=== PATIENT | female | born 1990 | race Caucasian/White ===

== ENCOUNTER 2019-08-12 16:29 | Emergency (ER) | payer OTHER ==
[2019-08-12 16:46] VITALS: BP 99/64; PULSE 79; TEMP 98.2; BMI 31.9
--- NOTE | 2019-08-12 17:00 | PDOC ---
History of Present Illness - General Chief Complaint: Pain, Acute Stated Complaint: LOWER ABD PAIN Time Seen by Provider: 08/12/19 16:47 - History of Present Illness Initial Comments: 08/12/19 17:00 CHIEF COMPLAINT: test HISTORY OF PRESENT ILLNESS: 29 yo F presents to [facility] requesting test. Patient requests discretion and refuses to answer more questions regarding request. No recent travel or sick contacts. PAST MEDICAL HISTORY: Denies past medical history FAMILY HISTORY: Denies SOCIAL HISTORY: Denies tobacco, alcohol, illicit drug use. SURGICAL HISTORY: Denies ALLERGIES: No known drug allergies REVIEW OF SYSTEMS - refused PHYSICAL EXAM General Appearance: Well-appearing, appropriately dressed. No apparent distress , no intoxication. HEENT: EOMI, PERRLA, normal ENT inspection, normal voice, TMs normal, pharynx normal. No conjunctival pallor. No photophobia, scleral icterus. Neck: Supple. Trachea midline. Respiratory/Chest: Lungs CTAB. Cardiovascular: RRR. S1, S2. Gastrointestinal/Abdominal: Normal bowel sounds. Abdomen soft, non-distended. Musculoskeletal/Extremities: Normal inspection. FROM of all extremities, normal capillary refill. Pelvis Stable. No CVA tenderness. No tenderness to extremities, pedal edema, swelling, erythema or deformity. Integumentary: Appropriate color, dry, warm. No cyanosis, erythema, jaundice or rash Neurologic: kitchen supervisor II-XII intact. Fully oriented, alert. Appropriate mood/affect. Motor strength 5/5. No appreciable EOM palsy, facial droop or sensory deficit. Past History - Past Medical History Allergies/Adverse Reactions: Allergies Allergy/AdvReac Type Severity Reaction Status Date / Time No Known Allergies Allergy Verified 10/04/12 11:35 Home Medications: Ambulatory Orders Pnv Comb.[id number]/Iron Bisgly/FA [ Capsule] 1 cap PO DAILY 02/09/12 Acetaminophen [Tylenol .Regular Strength -] 650 mg PO Q3H PRN #0 tablet Ferrous Sulfate [Feosol] 325 mg PO DAILY #0 ud 02/11/12 Ibuprofen [Motrin -] 600 mg PO Q4H PRN #0 tablet 02/11/12 Vitamins (Sjr) - 1 tab PO DAILY #0 tablet 02/11/12 Witch Nicole 50% (Tucks) [Tucks Pads -] 1 pad TP PRN PRN #0 pad 07/12/12 Asthma: No Cancer: No Cardiac Disorders: No COPD: Yes Diabetes: No HTN: No Seizures: No Thyroid Disease: No - Immunization History Immunization Up to Date: No - Psycho Social/Smoking Cessation Hx Smoking Status: No Smoking History: Never smoked Have you smoked in the past 12 months: No Number of Cigarettes Smoked Daily: 0 Information on smoking cessation initiated: No Hx Alcohol Use: No Drug/Substance Use Hx: No Hx Substance Use Treatment: No *Physical Exam - Vital Signs Last Vital Signs Temp Pulse Resp BP Pulse Ox 98.2 F 79 18 99/64 98 08/12/19 16:44 08/12/19 16:44 08/12/19 16:44 08/12/19 16:44 08/12/19 16:44 Medical Decision Making - Medical Decision Making 08/12/19 17:00 29 yo F presents to [facility] requesting test. -upreg/ua 08/12/19 18:54 upreg positive, patient made aware Discharge - Discharge Information Problems reviewed: Yes Clinical Impression/Diagnosis: Qualifiers: Weeks of gestation: unspecified Qualified Code(s): Z34.90 - Encounter for supervision of normal , unspecified, unspecified trimester Condition: Stable Disposition: HOME - Admission No - Follow up/Referral Referrals: Lamont Urena MD [Staff Physician] - - Patient Discharge Instructions - Post Discharge Activity
[2019-08-12 17:22] LABS: EPI CELLS 11.5 /HPF (0-5/HPF); HYALINE CASTS 5 /lpf (0-8); URINE APPEARANCE CLOUDY; URINE BACTERIA 181.2 /hpf (NEGATIVE); URINE BILIRUBIN NEGATIVE (NEGATIVE); URINE COLOR YELLOW; URINE GLUCOSE (UA) NEGATIVE (NEGATIVE); URINE KETONE NEGATIVE (NEGATIVE); URINE LEUK ESTERASE 2+ (NEGATIVE); URINE NITRITE NEGATIVE (NEGATIVE); URINE PROTEIN NEGATIVE (NEGATIVE); URINE RBC 2 /hpf (0-4); URINE WBC 12 /hpf (0-5)
== END 2019-08-12 17:48 | disposition home or self-care (01) ==
LOC: JERFT 16:29
DX: Z32.01 Encounter for pregnancy test, result positive (principal)
CPT/HCPCS: 81003; 84703; 99281-25

== ENCOUNTER 2023-03-17 20:45 | Emergency (ER) | payer OTHER ==
[2023-03-17 20:50] VITALS: BP 110/73; PULSE 75; RESP 18; TEMP 98.1; BMI 33.4
[2023-03-17] MEDS ORDERED: IBUPROFEN 600 MG TABLET (FP) PO ONE ×2 (22:17→22:18)
== END 2023-03-17 22:26 | disposition home or self-care (01) ==
LOC: JERFT 20:45 → JER 20:45 → JERFT 22:26
DX: S86.911A Strain of unspecified muscle(s) and tendon(s) at lower leg level, right leg, initial encounter (principal); M79.661 Pain in right lower leg; W50.0XXA Accidental hit or strike by another person, initial encounter; Y99.0 Civilian activity done for income or pay
CPT/HCPCS: 99283-25

== ENCOUNTER 2023-03-28 10:28 | Emergency (ER) | payer OTHER ==
[2023-03-28 10:33] VITALS: BP 122/85; PULSE 80; RESP 18; TEMP 97.9; BMI 33.4
[2023-03-28] MEDS ORDERED: AMOXICILLIN 500 MG CAPSULE (FP) PO ONE (12:24)
[2023-03-28] MEDS ORDERED: IBUPROFEN 600 MG TABLET (FP) PO ONE ×2 (12:24→12:32)
[2023-03-28] MEDS ORDERED: AMOX TR/POT CLAV 500MG/125MG TABLETS (FP) ONE (12:32)
== END 2023-03-28 12:36 | disposition home or self-care (01) ==
LOC: JERFT 10:28 → JER 10:28
DX: R22.0 Localized swelling, mass and lump, head (principal); H92.02 Otalgia, left ear; K04.7 Periapical abscess without sinus
CPT/HCPCS: 99283-25